=== PATIENT | male | born 1980 | race Two or more races ===

== ENCOUNTER 2019-11-08 10:56 | Emergency (ER) | payer SELFPAY ==
[~2019-11-08] VITALS: Ht 177.8 cm; Wt 90.7 kg
[2019-11-08] MEDS ORDERED: LIDOCAINE /MPF 1% VIAL 5 ML VIAL ONE (11:09)
[2019-11-08] MEDS ORDERED: CEFTRIAXONE 500 MG VIAL ONE (11:09)
[2019-11-08] MEDS ORDERED: AZITHROMYCIN 250 MG TABLET ONE (11:09)
--- NOTE | 2019-11-08 11:18 | NUR ---
Patient discharged to home in stable condition. Written and verbal after care instructions given. Patient verbalizes understanding of instruction.
[2019-11-08 11:19] VITALS: BP 136/92
[2019-11-08] MEDS ORDERED: AZITHROMYCIN 250 MG TABLET PO ONE (11:30)
[2019-11-08] MEDS ORDERED: CEFTRIAXONE 500 MG VIAL IM ONE (11:30)
== END 2019-11-08 11:19 | disposition home or self-care (01) ==
LOC: ER 11:00
DX: N34.2 Other urethritis (principal)
CPT/HCPCS: 87491; 87591; 96372; 99283; J0696; J3490